=== PATIENT | male | born 1975 | race Caucasian/White ===

== ENCOUNTER 2018-02-10 00:29 | Emergency (ER) | payer MEDICARE, OTHER ==
[~2018-02-10] VITALS: Ht 182.9 cm; Wt 113.4 kg
[~2018-02-10 00:29] MED LIST: BUPR100 PO; CYCL10 PO; Cyclobenzaprine5 MG PO; GABA600 PO; IBUP800 PO; Norco 5-325 Ta1 EACH PO
[2018-02-10] MEDS ORDERED: OXYC5 PO (00:40)
[2018-02-10] MEDS ORDERED: Robaxin-750750 MG PO (02:35)
[2018-02-10] MEDS ORDERED: METPRE4DP PO (02:35)
== END 2018-02-10 02:55 | disposition home or self-care (01) ==
LOC: ER 00:29
DX: M54.16 Radiculopathy, lumbar region (principal); G89.29 Other chronic pain; Z79.899 Other long term (current) drug therapy
CPT/HCPCS: 72100; 96374; 96375; 96376; 99284; J1885; J3010